=== PATIENT | female | born 2000 ===

== ENCOUNTER 2020-10-10 12:26 | Emergency (ER) | payer SELFPAY ==
[2020-10-10 12:29] VITALS: BP 147/96; PULSE 99; RESP 16; TEMP 36.8; O2SAT 100
--- NOTE | 2020-10-10 12:56 | ED.GENADULT ---
HPI - General Adult General Chief complaint: Unspecified Stated complaint: Have moles on back and want blood work done Time Seen by Provider: 10/10/20 12:38 Source: patient and RN notes reviewed Mode of arrival: ambulatory Limitations: no limitations History of Present Illness HPI narrative: Patient is a 20-year-old female who has 2 sores on the upper back was concern for possible cancer does not have a primary care has not been seen for these complaints on arrival is in no distress. Patient with 2 small wounds to the right upper back that appear to be resolving pimples with other similar lesions over the back there is no erythema drainage or fluctuance Related Data Home Medications Medication Instructions Recorded Confirmed No Home Medications 10/10/20 10/10/20 Allergies Allergy/AdvReac Type Severity Reaction Status Date / Time No Known Allergies Allergy Verified 10/10/20 12:34 Review of Systems Review of Systems: All systems reviewed & are unremarkable except as noted in HPI and below PMFSH Social History Social History (Updated 10/10/20 @ 13:00 by Dave Serrano PA-C) Smoking status: Never smoker Exam Narrative: GENERAL: Well-appearing, well-nourished, and in no acute distress. HEAD: Normocephalic, atraumatic. EYES: PERRLA and EOMI. ENT: Nares clear, no rhinorrhea or epistaxis. Mucous membranes moist. CHEST: Clear to auscultation. No respiratory distress. No wheezes rales or rhonchi HEART: Regular rate and rhythm. No murmur heard. EXTREMITIES: Normal range of motion. No edema. SKIN: Warm, dry, no rash. 2 small skin lesions to the right upper back of concern for the patient they are not raised today and I have drainage there is no erythema irregular margins appear to be resolving pimples or wounds with other similar resolving type lesions of the back and on the upper extremities NEURO: No focal deficits. Alert and oriented x3. PSYCH: Normal mood and affect. Course Course Emergency Course: Patient will be given plastic surgery and primary care follow-up for discussion of biopsy or reevaluation given her concerns felt appropriate for outpatient reevaluation ABCs and vital signs intact and stable no other complaints Vital Signs Vital signs: Vital Signs Temperature 98.2 F 10/10/20 12:29 Pulse Rate 99 10/10/20 12:29 Respiratory Rate 16 10/10/20 12:29 Blood Pressure 147/96 H 10/10/20 12:29 Pulse Oximetry 100 10/10/20 12:29 Temperature 98.2 F 10/10/20 12:29 Pulse Rate 99 10/10/20 12:29 Respiratory Rate 16 10/10/20 12:29 Blood Pressure 147/96 H 10/10/20 12:29 Pulse Oximetry 100 10/10/20 12:29 Medical Decision Making MDM Narrative Medical decision making narrative: Patient presented with concern for skin lesions referred to primary care and specialty services for further evaluation Vital Signs Vital Signs: Vital Signs Temperature 98.2 F 10/10/20 12:29 Pulse Rate 99 10/10/20 12:29 Respiratory Rate 16 10/10/20 12:29 Blood Pressure 147/96 H 10/10/20 12:29 Pulse Oximetry 100 10/10/20 12:29 Temperature 98.2 F 10/10/20 12:29 Pulse Rate 99 10/10/20 12:29 Respiratory Rate 16 10/10/20 12:29 Blood Pressure 147/96 H 10/10/20 12:29 Pulse Oximetry 100 10/10/20 12:29 Discharge Plan Discharge Clinical Impression: Visit for wound check Patient Disposition: Home, Self-Care Condition: Stable Instructions: Antibiotic Form, Acute Wounds (ED) Additional Instructions: Follow up with primary care in the next 2-3 days for re-evaluation and discussion of referral to dermatology return if symptoms worsen or concerns, any increase in redness swelling pain or fever over 100.5 Clean wound with mild soapy water. Apply antibiotic ointment and clean dressing at least three times daily Prescriptions: No Action No Home Medications RF: 0 Follow-up/Referrals: PHYSICIAN NOT ON STAFF,NONSTAFF [Primary Care Provider] -
== END 2020-10-10 13:10 | disposition home or self-care (01) ==
LOC: ANHED 13:17
PROVIDERS: Emergency Provider Emergency Medicine
DX: L98.9 Disorder of the skin and subcutaneous tissue, unspecified (principal)
CPT/HCPCS: 99281

== ENCOUNTER 2022-05-21 13:44 | Emergency (ER) | payer OTHER, SELFPAY ==
[2022-05-21 14:04] VITALS: BP 114/64; PULSE 53; RESP 16; TEMP 36.6; O2SAT 100
--- NOTE | 2022-05-21 14:46 | ED.SKABFB ---
HPI - Skin/Abscess/Foreign Bdy General Chief complaint: Skin/Abscess/Foreign Body Stated complaint: boil on lt side, congestion, sore throat, headache Time Seen by Provider: 05/21/22 14:45 Source: patient Mode of arrival: ambulatory Limitations: no limitations History of Present Illness HPI narrative: 22 year old female who presents to [facility] care with complaints of sore throat,headache and congestion for the past 3 days. She also reports boil type of lesion to her left flank area for the past 3-5 days, reports that area is tender with no drainage from site. Patient has not taken any oral medications for her complaints. Patient reports that no one is ill at home. MD complaint: abscess/boil and other (sore throat,headache, congestion) Onset (ago): day(s) (3) Location: back (left flank) Severity scale (1-10): 2 Treatments prior to arrival: none Related Data Allergies Allergy/AdvReac Type Severity Reaction Status Date / Time No Known Allergies Allergy Verified 05/21/22 14:44 Review of Systems Review of Systems: CONSTITUTIONAL: Denies fever, chills, or sweats. EYES: Denies visual changes, redness, or discharge. ENT: reports rhinorrhea, congestion, sore throat, no otalgia. CARDIOVASCULAR: Denies chest pain, palpitations, or edema. RESPIRATORY: Positive for dry cough no dyspnea. GASTROINTESTINAL: Denies abdominal pain, nausea, vomiting, or diarrhea. GENITOURINARY: Denies dysuria or hematuria. SKIN: Denies rash or itching. positive for small boil/abscess to left flank MUSCULOSKELETAL: Denies back pain, joint pain, or myalgia. NEUROLOGIC: reports headache, no numbness, or weakness. PSYCHIATRIC: Denies anxiety or depression. All systems reviewed & are unremarkable except as noted in HPI and below PMFSH Social History Social History (Updated 05/23/22 @ 10:50 by Tavia Stacy NP) Smoking status: Current every day smoker Alcohol intake: current Alcohol use details: social Substance use type: does not use Living arrangements: with family Occupation/Education: student Gender identity (if verbalized by the patient): Female Comments At time of signature, agree with nursing past medical, surgical, social and family history. There is no relevant family history pertinent to the presenting complaint Exam Narrative: GENERAL: Well-appearing, well-nourished, and in no acute distress. HEAD: Normocephalic, atraumatic. EYES: PERRLA and EOMI. ENT: Nares clear, clear rhinorrhea no epistaxis. Mucous membranes moist.TM's normal with good light reflex, throat with some redness, no acute tonsil enlargement, no lesions or exudates NECK: Supple.no lymphadenopathy CHEST: Clear to auscultation. No respiratory distress.SAO2 100% on room air HEART: Regular rate and rhythm. No murmur heard. Normal peripheral pulses. ABDOMEN: Soft, nontender, nondistended, normal active bowel sounds. EXTREMITIES: Normal range of motion. No edema. SKIN: Warm, dry, no rash. 0.5cm absccess to left area tender to palpation, no acute redness or drainage noted NEURO: No focal deficits. Alert and oriented x3. Course Course Emergency Course: Patient is aware of diagnosis, understands and agrees to treatment plan.? Anticipatory guidance given.? Patient agrees to follow-up as directed and is aware of reasons to seek care at the emergency department. Portions of this record may have been created with voice recognition software Level of Care: Express Care Visit Vital Signs Vital signs: Vital Signs Temperature 36.6 C 05/21/22 14:04 Pulse Rate 53 L 05/21/22 14:04 Respiratory Rate 16 05/21/22 14:04 Blood Pressure 114/64 05/21/22 14:04 Pulse Oximetry 100 05/21/22 14:04 Oxygen Delivery Room Air 05/21/22 14:04 Temperature 36.6 C 05/21/22 14:04 Pulse Rate 53 L 05/21/22 14:04 Respiratory Rate 16 05/21/22 14:04 Blood Pressure 114/64 05/21/22 14:04 Pulse Oximetry 100 05/21/22 14:04 Oxygen Delivery Room Air 05/21/22 14:04 Revi
== END 2022-05-21 15:22 | disposition home or self-care (01) ==
PROVIDERS: Emergency Provider Registered Nurse
DX: J06.9 Acute upper respiratory infection, unspecified (principal); L02.211 Cutaneous abscess of abdominal wall; F17.200 Nicotine dependence, unspecified, uncomplicated
CPT/HCPCS: 87081; 87880; 99213; G0463